=== PATIENT | female | born 1965 | race Caucasian/White ===

== ENCOUNTER 2021-08-25 13:28 | Inpatient (IN) | payer BC ==
[~2021-08-25] VITALS: Ht 157.5 cm; Wt 91.8 kg
[~2021-08-25 13:28] MED LIST: ATIVAN 0.50.5 MG/TAB PO; CEPHALEXIN PO; LEXAPRO 10MG10 MG PO; LORTAB 7.5/5001 TAB PO; PHENERGAN 25 TA25 MG PO
[2021-09-21] VITALS (11 sets, daily range): BP systolic 105–147; BP diastolic 55–81; PULSE 55–84; TEMP 98.7–99
[2021-09-21] MEDS ORDERED: VRAYLAR1.5 MG PO (10:58)
--- NOTE | 2021-09-21 11:38 | NUR ---
MANAGER SOURCING PRUM contacted regarding Flagyl; he stated OK to start.
--- NOTE | 2021-09-21 16:45 | NUR ---
dozing at intervals, had water and tolerated well, will try pudding and if tolerates will instruct on regular diet
--- NOTE | 2021-09-21 17:14 | NUR ---
while in with pt she reports feeling like she passed more than gas, assessed and found a pool of blood. Shaina RN in to help with hygeine and left lower bandage was oozing blood as well. Reports discomfort in lower abdomen.
--- NOTE | 2021-09-21 17:30 | NUR ---
reassessed pt and bloody discharge without clots present on chucks pad.
--- NOTE | 2021-09-21 18:08 | NUR ---
has had another mod to large amount bloody clots
--- NOTE | 2021-09-21 18:11 | NUR ---
Dr Pleitez notified of rectal bleeding with clots, will continue to monitor
--- NOTE | 2021-09-21 19:02 | NUR ---
bedside shift report given to CHUCKY Murillo
--- NOTE | 2021-09-21 21:25 | NUR ---
PT UP IN HALLWAY AMBULATING WITH STAFF. AFTER RETURNING TO ROOM PT PASSED SEVERAL CLOTS. PT SITTING IN CHAIR AT BEDSIDE. HAS IVF INFUSING TO RT HAND WITHOUT REDNESS OR SWELLING. IS ALERT AND ORIENTED X4. REPORTS LOWER ABD CRAMPING 2/10.
--- NOTE | 2021-09-21 22:00 | NUR ---
PT HAD ANOTHER LARGE CLOT FROM RECTUM AFTER GETTING UP FROM CHAIR. BACK IN BED.
--- NOTE | 2021-09-22 00:05 | NUR ---
PT HAVING RECTAL BLEEDING, CHUX CHANGED AT THIS TIME WITH ESTELLE CARE PROVIDED. IVF CONTINUE TO RT HAND. TAKES SCHEDULED ES TYLENOL AT THIS TIME. LAP SITES DRY X4. LOW TRANSVERSE DRSG DRY.
--- NOTE | 2021-09-22 02:32 | NUR ---
PT CONTINUES TO HAVE RECTAL BLEEDING. PASSING GAS, FEW CLOTS NOTED THIS TIME ON CHUX, ESTELLE CARES PROVIDED AND NEW CHUX PLACED.
[2021-09-22 04:15] VITALS: BP 115/57; PULSE 65; TEMP 98.6
--- NOTE | 2021-09-22 04:18 | NUR ---
REPORTED BY PCT, DRAINAGE FROM RECTUM IS LOOKING MORE RUST COLORED VS ARIK BLOOD. PT DENIES NEED FOR STRONGER PAIN MEDS THAN THE ES TYLENOL OR NAPROSYN.
[2021-09-22 06:55] LABS: HEMATOCRIT 36.8 % (37.0-47.0)
[2021-09-22 06:56] LABS: CALCIUM 8.9 mg/dL (8.4-10.2); CREATININE, serum 0.76 mg/dL (0.57-1.11); POTASSIUM 4.5 mmol/L (3.5-4.5)
[2021-09-22 07:49] VITALS: BP 104/58; PULSE 65; TEMP 98.9
--- NOTE | 2021-09-22 08:34 | NUR ---
Pt reported that she has not been up much as of now. Pt still having output from rectum. It is liquid and dark red/brownish in color. It was pooled between her legs when going to remove larose catheter. Assisted pt up to the chair. Cleaned pt up and bed linens changed. Pt did well with transfer with minimal pain complaints. Pt did eat some breakfast, no complaints. Dr Pleitez has been in to see pt, no new orders at this time. Larose cathter was removed. No other needs at this time, call light within reach
--- NOTE | 2021-09-22 09:39 | NUR ---
Initial visit; Patient thanked Greenhouse Superintendent for stopping and stated she didn't have any spiritual needs at this time but Greenhouse Superintendent can keep her in her prayers.
--- NOTE | 2021-09-22 10:32 | NUR ---
Insurance Law Specialist met with patient and patient's life partner, Tj (ph#[phone]) to discuss discharge planning. Patient lives in [place] and sees Brenda Armenta, Nurse Practitioner for primary care. Patient obtains medications from [facility] in [place] with no difficulties and does not use any DME. Patient is independent with ADLS and plans to return home at time of discharge. Patient reports she completed Advance Directives at [facility]. Discharge Plan: Home
--- NOTE | 2021-09-22 10:42 | NUR ---
Pt back in bed resting. Reports pain is tolerable, denies any needs, call light within reach
[2021-09-22 12:00] VITALS: BP 116/53; PULSE 73; TEMP 98.9
[2021-09-22 16:00] VITALS: BP 116/48; PULSE 76; TEMP 98.8
--- NOTE | 2021-09-22 18:09 | NUR ---
Pt doing well with minimal to no pain complaints. She has been up walking in the halls. Pt is wearing a brief, but has been able to control the output she was unable to control earlier. Output is liquid and starting to be brown in color. Voiding without difficulty. Tolerated PO
[2021-09-22 20:12] VITALS: BP 113/43; PULSE 75; TEMP 98.5
--- NOTE | 2021-09-22 20:20 | NUR ---
PT HAS BEEN UP IN HALLWAY ON OWN, GAIT STEADY. WEARING BRIEF FOR POSSIBLE LOOSE STOOLS. REPORTS ABLE TO CONTROL OUTPUT. VOIDING WITHOUT DIFFICULTY. TAKING ORAL FOODS AND FLUIDS, CAPPED IVF AT THIS TIME, SITE TO RT HAND WITHOUT REDNESS OR SWELLING. PO NAPROSYN GIVEN PER SCHEDULE, DENIES NEED FOR STRONGER PAIN MEDS. LAP SITES X4 D/I, LOW TRANSVERSE WITH DRY DRSG.
[2021-09-22 23:52] VITALS: BP 108/45; PULSE 69; TEMP 98.2
--- NOTE | 2021-09-23 00:30 | NUR ---
PT RESTING WELL, SCHEDULED ES TYLENOL GIVEN.
[2021-09-23 04:32] VITALS: BP 103/48; PULSE 63; TEMP 98.3
--- NOTE | 2021-09-23 06:30 | NUR ---
DR DIOP HERE, REMOVES DRESSINGS AND OKAYS PT TO SHOWER. PT MEDICATED WITH SCHEDULED ES TYLENOL.
[2021-09-23 06:52] LABS: HEMATOCRIT 28.7 % (37.0-47.0); HEMOGLOBIN 9.4 g/dl (12.5-16.0)
--- NOTE | 2021-09-23 07:50 | NUR ---
DR. DIOP NOTIFIED OF DELTA CHECK FOR PT'S HGB, WILL HOLD LOVENOX TODAY. PT STATES THAT SHE IS STILL HAVING LOOSE STOOLS THAT ARE DARK RED BUT NO CLOTS SEEN. PT DENIES PAIN @ REST, HAS BEEN AMBULATING IN HALLS, TOLERATES WELL.
[2021-09-23 07:52] VITALS: BP 105/52; PULSE 70; TEMP 98.4
[2021-09-23 12:00] VITALS: BP 108/47; PULSE 65; TEMP 98.5
--- NOTE | 2021-09-23 13:45 | NUR ---
PT DISCHARGED TO HOME WITH SPOUSE @ THIS TIME, AMBULATES TO PRIVATE CAR, ACCOMPANIED BY [facility] SHIPLEY. PT HAS BEEN GIVEN DISCHARGE EDUCATION ET INSTRUCTIONS, DEMONSTRATES UNDERSTANDING, DENIES QUESTIONS.
== END 2021-09-23 13:45 | disposition home or self-care (01) | DRG 330 ==
LOC: INPTSU 09-21 09:31 → SURG 09-21 09:31
PROVIDERS: ADMIT Surgery
PROC: 0DNL4ZZ Release Transverse Colon, Percutaneous Endoscopic Approach (ICD-10-PCS; 2021-09-21)
PROC: 0DBN4ZZ Excision of Sigmoid Colon, Percutaneous Endoscopic Approach (ICD-10-PCS; principal; 2021-09-21 12:00)
DX: K57.32 Diverticulitis of large intestine without perforation or abscess without bleeding (principal); D62 Acute posthemorrhagic anemia; K62.5 Hemorrhage of anus and rectum; G47.00 Insomnia, unspecified; E66.01 Morbid (severe) obesity due to excess calories; G43.909 Migraine, unspecified, not intractable, without status migrainosus; F41.9 Anxiety disorder, unspecified; J45.909 Unspecified asthma, uncomplicated; F31.9 Bipolar disorder, unspecified; I34.1 Nonrheumatic mitral (valve) prolapse; Z90.49 Acquired absence of other specified parts of digestive tract; Z98.51 Tubal ligation status; Z88.2 Allergy status to sulfonamides; Z90.710 Acquired absence of both cervix and uterus; Z68.37 Body mass index [BMI] 37.0-37.9, adult
CPT/HCPCS: A4314; A9284; J0690; J1100; J2250; J2405; J2704; J2795; J3010; J7120